=== PATIENT | female | born 1995 | race Caucasian/White ===

== ENCOUNTER 2018-05-17 17:15 | Emergency (ER) | payer BC, OTHER ==
[2018-05-17] MEDS ORDERED: predniSONE 20 MG TAB ONE (17:38)
== END 2018-05-17 18:11 | disposition home or self-care (01) ==
LOC: ERS 17:15
DX: L91.8 Other hypertrophic disorders of the skin (principal); D57.3 Sickle-cell trait; F84.0 Autistic disorder
CPT/HCPCS: 94640; J7506; J7620

== ENCOUNTER 2019-06-26 01:27 | Emergency (ER) | payer OTHER, SELFPAY ==
[2019-06-26] MEDS ORDERED: predniSONE 20 MG TAB ONE (01:45)
== END 2019-06-26 02:25 | disposition home or self-care (01) ==
LOC: ERS 01:27
DX: J45.901 Unspecified asthma with (acute) exacerbation (principal)
CPT/HCPCS: 94640; J7512; J7620

== ENCOUNTER 2019-11-07 08:49 | Inpatient (IN) | payer OTHER, SELFPAY ==
[2019-11-07] MEDS ORDERED: Magnesium 2 GM/50 ML BAG (IN WATER) ONE (09:35)
[2019-11-07] MEDS ORDERED: methylPREDNISolone Sod Succ/PF 125 MG/2 ML VIAL ONE (09:35)
--- NOTE | 2019-11-07 09:40 | RAD ---
CHEST 1 VIEW: HISTORY: Shortness of breath and migraine headache. FINDINGS: Heart size is normal. The lungs are clear. No confluent pneumonia, overt edema, pleural effusion, o r other acute process. IMPRESSION: No significant acute intrathoracic disease. POS: [facility]
[2019-11-07 09:52] LABS: #Basophils 0.1 thou/uL (0.0-0.2); #Eosinphils 0.6 thou/uL (0.0-0.7); #Lymphocytes 1.2 thou/uL (1.20-3.40); #Monocytes 0.9 thou/uL (0.11-0.59); #Neutrophils 10.5 thou/uL (1.40-6.50); %Basophils 0.6 % (0.0-1.0); %Eosinophils 4.4 % (0.0-10.0); %Lymphocytes 9.2 % (21.0-51.0); %Monocytes 6.7 % (0.0-10.0); %Neutrophils 79.1 % (42.0-75.0); Hemoglobin 14.2 g/dL (12.0-16.0); Mean Corpuscular HGB CONC 32.8 g/dL (32.0-36.0); Mean Corpuscular Hemoglobin 30.2 pg (27.0-31.0); Mean Corpuscular Volume 92.1 fL (78.0-98.0); Mean Platelet Volume 6.8 fL (7.4-10.4); Platelet Count 315 thou/uL (130-400); RBC Distribution Width 11.3 % (11.5-14.5); White Blood Cell (WBC) Count 13.3 thou/uL (4.8-10.8)
[2019-11-07] MEDS ORDERED: Albuterol 200 PUFF (6.7GM INHALER) ONE (10:05)
[2019-11-07 10:15] LABS: ALT (SGPT) 22 U/L (8-55); AST (SGOT) 13 U/L (5-34); Albumin 4.1 g/dL (3.5-5.0); Alkaline Phosphatase 91 U/L (40-110); Anion Gap 11 mmol/L (10-20); BHCG - Serum Negative (NEGATIVE); BUN (Urea Nitrogen) 7 mg/dL (7.0-18.7); Bilirubin, Total 1.1 mg/dL (0.2-1.2); Calc. Creatinine Clearance 0 mL/min (70-130); Calcium 9.1 mg/dL (7.8-10.44); Carbon Dioxide 27 mmol/L (22-29); Chloride 106 mmol/L (98-107); Estimated GFR-MDRD 88; Globulin 2.9 g/dL (2.4-3.5); Glucose 112 mg/dL (70-105); Potassium 4.5 mmol/L (3.5-5.1); Pregs Control Background? CLEAR/WHITE (CLR/WHITE); Pregs Control Bar Appear? YES (CONTROL BAR); Sodium 139 mmol/L (136-145)
[2019-11-07 17:50] VITALS: BMI 31.3
[2019-11-07] MEDS ORDERED: Acetaminophen 500 MG TAB PO PRN (18:01)
[2019-11-07] MEDS ORDERED: Ondansetron ODT 4 MG TAB PO PRN (18:01)
[2019-11-07] MEDS ORDERED: Ondansetron PF 4 MG/2 ML Vial IVP PRN (18:01)
[2019-11-07] MEDS ORDERED: Bacteriostatic Water 30 ML VIAL FS PRN (18:20)
[2019-11-07] MEDS ORDERED: methylPREDNISolone Sod Succ 40 MG VIAL IVP SCH (18:30)
[2019-11-07] MEDS: Famotidine 20 MG TAB PO SCH (20:26)
[2019-11-07] MEDS: Montelukast Sodium 10 mg Tablet PO SCH (20:26)
[2019-11-07] MEDS: methylPREDNISolone Sod Succ 40 MG VIAL IVP SCH (23:25)
--- NOTE | 2019-11-08 00:10 | HP ---
PRIMARY CARE PROVIDER: Deanne Garrett. CHIEF COMPLAINT: Shortness of breath. HISTORY OF PRESENT ILLNESS: This is a 24-year-old female, who presents to [facility] Emergency Department complaining of increased shortness of breath less than 24 hours. The patient states long-standing history of asthma since childhood on chronic metered dose inhaler with short-acting albuterol in addition to antihistamines and albuterol nebulized solution at home. The patient states she does have seasonal allergies, which have been particularly troublesome this year. No fever, chills, purulent cough, or exposure history. The patient denied any change to her chronic medication regimen. The patient denies using home oxygen. In the emergency room, the patient underwent general evaluation including chest imaging showing no acute infiltrates. The patient was noted tachypneic with respiratory rates in the 40s, receiving Proventil HFA, magnesium sulfate, Solu-Medrol, and intravenous normal saline x1 L. PAST MEDICAL HISTORY: 1. Chronic asthma, moderate. 2. Seasonal allergies. 3. Tobacco use. PAST SURGICAL HISTORY: Reviewed and negative. CURRENT MEDICATIONS: 1. Albuterol sulfate HFA 2 puffs inhaled q.4 hours p.r.n. 2. Albuterol nebulized solution 1 inhalation q.4 hours p.r.n. ALLERGIES: NO KNOWN DRUG ALLERGIES. FAMILY HISTORY: No inheritable diseases per patient report. SOCIAL HISTORY: Resides in [facility] [place] [facility]. Unemployed. Uses a Vape up to 3 mg approximately 1 week prior to this evaluation. Social alcohol use. No illicit drug use. REVIEW OF SYSTEMS: CONSTITUTIONAL: Negative for weight loss or gain, ability to conduct usual activities. SKIN: Negative for rash, itching. EYES: Negative for double vision, pain. ENT/MOUTH: Negative for nose bleeding, neck stiffness, pain, tenderness. CARDIOVASCULAR: Negative for palpitations, dyspnea on exertion, orthopnea. RESPIRATORY: Negative for shortness of breath, wheezing, cough, hemoptysis, fever or night sweats. GASTROINTESTINAL: Negative for poor appetite, abdominal pain, heartburn, nausea, vomiting, constipation, or diarrhea. GENITOURINARY: Negative for urgency, frequency, dysuria, nocturia. MUSCULOSKELETAL: Negative for pain, swelling. NEUROLOGIC/PSYCHIATRIC: Negative for anxiety, depression. ALLERGY/IMMUNOLOGIC: Negative for skin rash, bleeding tendency. Otherwise negative except as stated per HPI. PHYSICAL EXAMINATION: VITAL SIGNS. Blood pressure 131/83, pulse 123, respiratory rate 27, temperature 98.1 degrees Fahrenheit, O2 saturation 94% on room air. GENERAL APPEARANCE: This is a 24-year-old female, alert and oriented x3, pleasant, responsive, in mild respiratory distress. HEENT: Pupils are equal, round, reactive to light and accommodation. Extraocular muscles are intact. No scleral icterus. No conjunctival injection. Nares are patent. OP is clear. Teeth in good repair. NECK: Supple. No cervical adenopathy. No thyromegaly. No carotid bruits. No JVD appreciated. Cervical spine with full active and passive range of motion. No meningeal signs noted. CHEST: Diminished breath sounds in the bases bilaterally. Inspiratory and expiratory wheezing bilaterally. CARDIOVASCULAR: S1, S2 with tachycardia. No murmur, rub, or gallop appreciated. ABDOMEN: Rounded, soft, nontender, and nondistended. Bowel sounds are positive in all 4 quadrants. There is no hepatosplenomegaly. No abdominal bruits, no rebound or guarding appreciated. EXTREMITIES: Warm and dry with good turgor. No clubbing, cyanosis, or asymmetric edema appreciated. Pulses palpable distally at the dorsalis pedis, posterior tibial, and popliteal arteries bilaterally. Capillary refill less than 2 seconds. NEUROLOGIC: Cranial nerves 2 through 12 are grossly intact. No focal or lateralizing signs appreciated. PERTINENT LABORATORY AND X-RAY FINDINGS: Complete metabolic profile within normal limits. Serum beta-hCG negative. CBC showed a white blood cell count of 13.3, hemoglobin 14, hematocrit 43, platelet count 315 with 79% neutrophils. D-dimer 0.30. Portable chest x-ray dated 11/07/2019, showed no acute cardiopulmonary process. EKG dated 11/07/2019, by my interpretation shows sinus tachycardia with heart rates in the 120s. Normal R-wave progression noted in the precordial leads. Normal axis. No acute ST-T wave changes appreciated. ASSESSMENT/PLAN: 1. Acute asthma exacerbation. The patient will be observed on the medical floor. Continue Solu-Medrol 40 mg IV q.6 hours with additional DuoNeb q.4 hours. Oxygen at 2 to 3 L/minute by nasal cannula as needed to maintain O2 saturation greater than or equal to 90%. COVID-19 rule out pending. 2. Acute hypoxic respiratory failure secondary to #1, (see #1 above). 3. Leukocytosis with neutrophilia. Suspect demargination effect given the patient's presentation. Repeat CBC in the a.m. Potential influence of steroids. 4. Prophylaxis. SCDs while in bed. Pepcid 20 mg p.o. b.i.d. Respiratory isolation pending COVID-19 PCR. 5. Code status is full. Surrogate medical decision maker is patient's spouse. Job ID: [id number]
[2019-11-08] MEDS: PROVENTIL INHALER 6.7 G (200 INHALATIONS) INH PRN ×3 (02:17→10:00)
[2019-11-08] MEDS: methylPREDNISolone Sod Succ 40 MG VIAL IVP SCH ×3 (05:32→17:01)
[2019-11-08 06:36] LABS: Anion Gap 12 mmol/L (10-20); BUN (Urea Nitrogen) 12 mg/dL (7.0-18.7); Calc. Creatinine Clearance 162 mL/min (70-130); Calcium 9.1 mg/dL (7.8-10.44); Carbon Dioxide 24 mmol/L (22-29); Chloride 106 mmol/L (98-107); Estimated GFR-MDRD Greater than 90; Glucose 128 mg/dL (70-105); Potassium 4.3 mmol/L (3.5-5.1); Sodium 138 mmol/L (136-145)
[2019-11-08 06:51] LABS: Hemoglobin 13.8 g/dL (12.0-16.0); Mean Corpuscular HGB CONC 32.1 g/dL (32.0-36.0); Mean Corpuscular Hemoglobin 29.6 pg (27.0-31.0); Mean Corpuscular Volume 92.2 fL (78.0-98.0); Mean Platelet Volume 7.2 fL (7.4-10.4); Platelet Count 341 thou/uL (130-400); RBC Distribution Width 11.3 % (11.5-14.5); Red Blood Cell (RBC) Count 4.67 mill/uL (4.20-5.40); White Blood Cell (WBC) Count 13.6 thou/uL (4.8-10.8)
[2019-11-08 07:16] LABS: Band 17 % (5-11); Lymphocytes 8 % (21-51); MDiff Complete? YES; Monocytes 3 % (0-10); Neutrophil 71 % (42-75)
[2019-11-08] MEDS: Famotidine 20 MG TAB PO SCH ×2 (07:54→20:10)
[2019-11-08 11:35] LABS: SARS-CoV-2 MS2 Positive; SARS-CoV-2 N Gene Negative; SARS-CoV-2 S Gene Negative; SARS-CoV-2 orf1ab Negative
--- NOTE | 2019-11-08 14:36 | PDOC.HOSPP ---
- Subjective Encounter Date: 11/08/19 Encounter Time: 14:20 Subjective: f/u for acute asthma exacerbation on Solumedrol/Duonebs/Singulair/O2. States feeling better overall but desaturates quickly off O2. - Objective Vital Signs & Weight: Vital Signs (12 hours) Temp Pulse Resp BP BP Pulse Ox 11/08/19 14:31 78 16 96 11/08/19 12:40 98.4 F 82 18 126/75 95 11/08/19 08:13 98.4 F 90 18 110/71 92 L 11/08/19 05:30 98.2 F 87 18 110/71 98 Weight Weight 199 lb 15.348 oz I&O: 11/07/19 11/08/19 11/09/19 06:59 06:59 06:59 Intake Total 500 Balance 500 Result Diagrams: 11/08/19 05:42 11/08/19 05:42 Additional Labs: Laboratory Tests 11/07/19 17:00 COVID-19 PCR Not Detected Hospitalist ROS - Medication Medications: Active Medications Generic Name Dose Route Start Last Admin Trade Name Freq PRN Reason Stop Dose Admin Albuterol Sulfate 2 puff 11/07/19 18:01 11/08/19 10:00 Proventil Hfa INH 2 puff Q4H PRN Administration Wheezing Albuterol/Ipratropium 3 ml 11/07/19 18:30 11/08/19 14:31 Duoneb NEB 3 ml [id number] AUG[place] Administration Famotidine 20 mg 11/07/19 21:00 11/08/19 07:54 Pepcid PO 20 mg BID [place] Administration Methylprednisolone Sodium Succinate 40 mg 11/07/19 23:59 11/08/19 12:27 Solu-Medrol IVP 40 mg Q6HR [place] Administration Montelukast Sodium 10 mg 11/07/19 21:00 11/07/19 20:26 Singulair PO 10 mg QPM [place] Administration Sterile Water 1 ml 11/07/19 18:20 11/07/19 18:55 Bacteriostatic Water FS 1 ml PRN PRN Administration RECONSTITUTION - Exam General Appearance: NAD, awake alert Eye: PERRL, anicteric sclera ENT: normocephalic atraumatic, no oropharyngeal lesions Neck: supple, symmetric, no JVD, no thyromegaly Heart: RRR, no murmur, no gallops, no rubs, normal peripheral pulses Respiratory: no rales, tachypneic Respiratory - other findings: diminished, exp wheezes bilat Gastrointestinal: soft, non-tender, non-distended, normal bowel sounds, no palpable masses Extremities: no cyanosis, no clubbing, no edema Skin: normal turgor, no lesions Neurological: cranial nerve grossly intact, no new deficit Musculoskeletal: normal tone, normal strength, no muscle wasting Psychiatric: normal affect, A&O x 3 Hosp A/P (1) Acute asthma exacerbation Code(s): J45.901 - UNSPECIFIED ASTHMA WITH (ACUTE) EXACERBATION Status: Acute Plan: Continue Solumedrol/Duonebs/Singulair, add Dulera 2puffs BID, O2 to maintain sats >90% (2) Acute respiratory failure with hypoxia Code(s): J96.01 - ACUTE RESPIRATORY FAILURE WITH HYPOXIA Status: Acute Plan: Secondary to #1, see above for management (3) Neutrophilic leukocytosis Code(s): D72.9 - DISORDER OF WHITE BLOOD CELLS, UNSPECIFIED Status: Acute Plan: Likely steroid-induced, no focal infectious process identified (4) Hyperglycemia Code(s): R73.9 - HYPERGLYCEMIA, UNSPECIFIED Status: Acute Plan: Steroid-induced, serial monitoring - Plan respiratory therapy, out of bed/ambulate, DVT proph w/SCDs Continue Solumedrol IV Add Dulera 2 puffs BID Continue Singulair/Duonebs OOB/ambulate Wean O2 as clinically indicated Convert to inpt status due to persistent hypoxia/dyspnea
[2019-11-08] MEDS: Mometasone 200 MCG/Formoterol 5 MCG 120 PUFF INHALER INH SCH (18:25)
[2019-11-08] MEDS: Montelukast Sodium 10 mg Tablet PO SCH (20:10)
[2019-11-09] MEDS: methylPREDNISolone Sod Succ 40 MG VIAL IVP SCH ×3 (00:08→11:12)
[2019-11-09] MEDS: Mometasone 200 MCG/Formoterol 5 MCG 120 PUFF INHALER INH SCH (07:39)
[2019-11-09] MEDS: Famotidine 20 MG TAB PO SCH (07:47)
--- NOTE | 2019-11-09 13:21 | DIS ---
DATE OF ADMISSION: 11/08/2019 DATE OF DISCHARGE: 11/09/2019 DISCHARGE DIAGNOSES: 1. Acute asthma exacerbation, resolving. 2. Acute hypoxic respiratory failure, resolved. 3. Neutrophilic leukocytosis due to steroids. 4. Hyperglycemia secondarily to steroids. CONSULTATIONS: None. PERTINENT LABORATORY AND X-RAY FINDINGS: Glucose ranged between 112 to 128. Serum beta-hCG negative on 11/07/2019. CBC showed a white blood cell count of 13.6. D-dimer 0.30. COVID-19 PCR not detected on 11/07/2019. Portable chest x-ray dated 11/07/2019, showed no acute cardiopulmonary process. HOSPITAL COURSE: The patient was admitted to the medical floor after initially presenting with increased shortness of breath in the context of chronic asthma. The patient was noted hypoxic and initiated on bronchodilator therapy. The patient initially received Proventil HFA in the emergency room in addition to magnesium sulfate and Solu-Medrol. The patient clinically improved with aggressive pulmonary supportive management and was ruled out for COVID-19 by PCR analysis. The patient transitioned off oxygen supplementation, maintaining O2 saturations in the mid 90% range on room air. Overall, the patient did remain clinically stable and rapidly clinically improved in the last 24 hours. I have examined the patient at the time of discharge and discussed followup instructions. The patient verbalized understanding and in agreement and ready for discharge on 11/09/2019. DISCHARGE MEDICATIONS: 1. Ventolin nebulized solution q.6 hours p.r.n. 2. Albuterol sulfate metered dose inhaler, 2 puffs inhaled q.6 hours p.r.n. 3. Nexplanon. 4. Dulera 200/5 mcg two puffs inhaled b.i.d. 5. Singulair 10 mg p.o. at bedtime. 6. Prednisone 20 mg two tablets p.o. daily x3 days, followed by one tablet p.o. daily x3 days, followed by half a tablet p.o. daily x3 days. FOLLOWUP: The patient may follow up at the [facility] in [place], [place] after discharge. CONDITION ON DISCHARGE: Stable. ACTIVITY: Ad-quinton. DIET: Regular. CODE STATUS: Full. DISPOSITION: Home on 11/09/2019. TIME SPENT: Total time preparing and coordinating discharge is 31 minutes. Job ID: [id number] [facility]
[2019-11-09 13:43] VITALS: BP 125/85; TEMP 98.5
== END 2019-11-09 13:50 | disposition home or self-care (01) | DRG 189 ==
LOC: ERS 08:49 → T4-B 15:08 → OBSVTOIN 11-08 14:31
PROVIDERS: ADMIT Family Medicine; ATTEND Family Medicine
PROC: 8E0ZXY6 Isolation (ICD-10-PCS; principal; 2019-11-08)
DX: J96.01 Acute respiratory failure with hypoxia (principal); J45.41 Moderate persistent asthma with (acute) exacerbation; D72.828 Other elevated white blood cell count; T38.0X5A Adverse effect of glucocorticoids and synthetic analogues, initial encounter; R73.9 Hyperglycemia, unspecified; Z20.828 Contact with and (suspected) exposure to other viral communicable diseases
CPT/HCPCS: 36415; 71045; 80048; 80053; 84484; 84703; 85007; 85025; 85027; 85379; 87635; 93005; 94640; 96365; 96375; J2920; J2930; J3475; J7620; U0003